=== PATIENT | male | born 2000 | race Two or more races ===

== ENCOUNTER 2022-09-08 16:27 | Emergency (ER) | payer MEDICAID ==
[~2022-09-08] VITALS: Ht 180.3 cm; Wt 70.5 kg
[2022-09-08 16:47] VITALS: BP 112/60; PULSE 82; RESP 18; TEMP 98.5
[2022-09-08] MEDS ORDERED: NIRM1TAB4 PO (17:50)
== END 2022-09-08 18:24 | disposition home or self-care (01) ==
LOC: EMS 16:33
DX: U07.1 COVID-19 (principal)
CPT/HCPCS: 99283; Z7502